=== PATIENT | female | born 1960 | race Caucasian/White ===

== ENCOUNTER 2017-09-05 10:25 | Emergency (ER) | payer BC ==
--- NOTE | 2017-09-05 10:56 | RAD ---
Procedure: XR WRIST 3 OR MORE VIEWS . Left Exam Date: 09/05/2017 10:37 AM CDT Ordering Provider: Margarito Yoder Clinical Indication: wrist pain Comparison: None Findings: There is evidence of diffuse osteopenia. Oblique fracture of the distal ulnar diaphysis is present with approximately 3 mm diastases. There is surrounding soft tissue swelling. IMPRESSION: Mildly diastatic distal ulnar fracture. Electronically signed by: Laiksha Wilks MD 09/05/2017 10:54 AM CDT
--- NOTE | 2017-09-05 10:58 | ED.PDOC ---
History of Present Illness - General Chief Complaint: Upper Extremity Injury Time Seen by Provider: 09/05/17 10:54 Source: patient Exam Limitations: no limitations - History of Present Illness Occurred: yesterday Pain - Upper Extremity: mild: Wrist, left Method of Injury: fell Improving Factors: immobilization Worsening Factors: movement Allergies/Adverse Reactions: Allergies NO KNOWN ALLERGY Allergy (Verified 09/05/17 10:33) Home Medications: Ambulatory Orders Acetamin W/Cod #3 Tab [Tylenol w/CODEINE #3] 1 ea PO Q4HWA PRN #15 tab 09/05/17 Review of Systems - Review of Systems Constitutional: States: no symptoms reported EENTM: States: no symptoms reported Respiratory: States: no symptoms reported Cardiology: States: no symptoms reported Gastrointestinal/Abdominal: States: no symptoms reported Skin: States: change in color Neurological: States: no symptoms reported. Denies: numbness, paresthesia, tingling Physical Exam - Physical Exam General Appearance: Alert, No apparent distress Shoulder Exam: normal inspection Elbow/Forearm Exam: normal inspection Wrist Exam: bone tenderness, limited ROM, swelling Hand Exam: normal inspection Progress - EKG/XRAY/CT XRAY: wrist - minimally displaced distal ulnar fx Departure - Departure Clinical Impression: Fracture of wrist, closed Qualifiers: Encounter type: initial encounter Laterality: left Qualified Code(s): S62.102A - Fracture of unspecified carpal bone, left wrist, initial encounter for closed fracture Disposition: Discharge to Home or Self Care Departure Forms: ED Discharge - Pt. Copy, Patient Portal Self Enrollment Prescriptions: Acetamin W/Cod #3 Tab [Tylenol w/CODEINE #3] 1 ea PO Q4HWA PRN #15 tab PRN Reason: Moderate To Severe Pain Home Medications: Ambulatory Orders Acetamin W/Cod #3 Tab [Tylenol w/CODEINE #3] 1 ea PO Q4HWA PRN #15 tab 09/05/17
[2017-09-05 11:09] VITALS: BP 136/94; TEMP 98.3; O2SAT 95
== END 2017-09-05 11:31 | disposition home or self-care (01) ==
LOC: ER 10:25
DX: S62.102A Fracture of unspecified carpal bone, left wrist, initial encounter for closed fracture (principal); W19.XXXA Unspecified fall, initial encounter; Y92.9 Unspecified place or not applicable